=== PATIENT | female | born 1995 | race Caucasian/White ===

== ENCOUNTER 2021-04-29 15:18 | Emergency (ER) | payer BC, SELFPAY ==
--- NOTE | ~2021-04-29 | XR_ITS ---
EXAMINATION: XR wrist LT min 3V EXAM DATE: 04/29/2021 16:12 INDICATION: left radial wrist pain s/p fall 10 days ago. Initial encounter. TECHNIQUE: Left wrist frontal, frontal with ulnar deviation, oblique and lateral projections obtained and reviewed. There is no prior study for comparison. FINDINGS: Left wrist scapholunate joint space is maintained. There are no acute fractures or disloca tions identified. There is no subcutaneous gas. The soft tissue is unremarkable. There are no rad iopaque foreign bodies. IMPRESSION: No acute osseous findings. Reviewed, dictated and finalized at location B. IMPRESSION: No acute osseous findings.
[2021-04-29 15:32] VITALS: BP 118/71; PULSE 101; RESP 16; TEMP 36.3; O2SAT 99
--- NOTE | 2021-04-29 15:57 | ED.UPPEXIN ---
HPI - Extremity Injury (Upper) General Chief Complaint: Extremity Injury, Upper Stated Complaint: Left Wrist Pain Time Seen by Provider: 04/29/21 15:53 Source: patient, RN notes reviewed and old records reviewed Mode of arrival: ambulatory History of Present Illness HPI narrative: 26-year-old female who presents to [facility] with complaints of left wrist pain after falling about 10 days ago. Patient states that she fell on to her buttocks and she put her left hand out to break her fall and has had pain with any movement of her left wrist since that time. Patient is 27 weeks denies any spotting or cramping since fall.Patient rates her pain 4/10, has taken Tylenol an used ice to wrist without resolution, pain increases with extension and flexion of wrist, strong left radial pulse, no noted deformity. MD complaint: injury to: left and wrist Treatments prior to arrival: cold therapy and other (Tylenol) Related Data Allergies Allergy/AdvReac Type Severity Reaction Status Date / Time No Known Allergies Allergy Unverified 11/18/16 18:49 Review of Systems Review of Systems: CONSTITUTIONAL: Denies fever, chills, or sweats. EYES: Denies visual changes, redness, or discharge. ENT: Denies rhinorrhea, congestion, sore throat, or otalgia. CARDIOVASCULAR: Denies chest pain, palpitations, or edema. RESPIRATORY: Denies cough or dyspnea. GASTROINTESTINAL: Denies abdominal pain, nausea, vomiting, or diarrhea. GENITOURINARY: Denies dysuria or hematuria. SKIN: Denies rash or itching. MUSCULOSKELETAL: Denies back pain,positive for left wrist pain, or myalgia. NEUROLOGIC: Denies headache, numbness, or weakness. PSYCHIATRIC: Denies anxiety or depression. All systems reviewed & are unremarkable except as noted in HPI and below [facility] Past Medical History Medical History (Updated 04/30/21 @ 00:01 by Caleb Santana) Branchial cyst removed from jaw age 4 Sinusitis Family History Family History (Updated 05/02/21 @ 20:43 by Phoebe Henderson NP) Grandparent Hypertension Heart disease Kidney failure Father Diverticulitis Social History Social History (Updated 04/29/21 @ 16:43 by Phoebe Henderson NP) Smoking status: Never smoker Alcohol intake: never Substance use: never Living arrangements: with family Gender identity (if verbalized by the patient): Female Comments At time of signature, agree with nursing past medical, surgical, social and family history. There is no relevant family history pertinent to the presenting complaint Exam Narrative: GENERAL: Well-appearing, well-nourished, and in no acute distress. HEAD: Normocephalic, atraumatic. EYES: PERRLA and EOMI. ENT: Nares clear, no rhinorrhea or epistaxis. Mucous membranes moist.TM's normal with good light reflex, throat pink with no lesions or exudates, no tonsil enlargement. NECK: Supple.no lymphadenopathy CHEST: Clear to auscultation. No respiratory distress.SAO2 99% on room air HEART: Regular rate and rhythm. No murmur heard. Normal peripheral pulses. ABDOMEN: Soft, nontender, nondistended, normal active bowel sounds. EXTREMITIES: Normal range of motion. No edema. Painful ROM of left wrist with no obvious deformity noted. strong left radial pulse, no tingling or numbness to left hand or fingers,nail beds pedrito briskly. pain increases with movement at wrist no swelling present. SKIN: Warm, dry, no rash. NEURO: No focal deficits. Alert and oriented x3. Course Vital Signs Vital signs: Vital Signs Temperature 36.3 C L 04/29/21 15:32 Pulse Rate 101 H 04/29/21 15:32 Respiratory Rate 16 04/29/21 15:32 Blood Pressure 118/71 04/29/21 15:32 Pulse Oximetry 99 04/29/21 15:32 Temperature 36.3 C L 04/29/21 15:32 Pulse Rate 101 H 04/29/21 15:32 Respiratory Rate 16 04/29/21 15:32 Blood Pressure 118/71 04/29/21 15:32 Pulse Oximetry 99 04/29/21 15:32 MDM - Extremity Injury (Upper) Differential Diagnosis Differential diagn
== END 2021-04-29 17:09 | disposition home or self-care (01) ==
PROVIDERS: Emergency Provider Registered Nurse; PCP Internal Medicine
DX: S63.502A Unspecified sprain of left wrist, initial encounter (principal); S66.912A Strain of unspecified muscle, fascia and tendon at wrist and hand level, left hand, initial encounter; X58.XXXA Exposure to other specified factors, initial encounter
CPT/HCPCS: 73110; 99213; G0463

== ENCOUNTER 2021-07-25 06:38 | Inpatient (IN) | payer BC, SELFPAY ==
[2021-07-25] VITALS (122 sets, daily range): BP systolic 83–142; BP diastolic 48–113; PULSE 62–158; RESP 16–18; TEMP 36–37; O2SAT 90–100; BMI 30.2
[2021-07-25 07:31] LABS: Basophils Absolute Auto 0.1 K/mm3 (0.0-0.1); Basophils Percent Auto 0.4 % (0.2-1.2); Eosinophils Percent Auto 0.2 % (0-4.4); Hemoglobin 10.5 g/dL (12.0-15.0); Immature Granulocyte Absolute 0.14 K/mm3 (0.00-0.031); Immature Granulocyte Percent A 0.7 % (0-0.5); Lymphocytes Absolute Auto 2.52 K/mm3 (0.9-3.2); Lymphocytes Percent Auto 13.3 % (18.3-44.2); Mean Corpuscular HGB Conc 31.8 g/dl (32-36); Mean Corpuscular Hemoglobin 27.4 pg (26-34); Mean Corpuscular Volume 86.2 fl (80-100); Mean Platelet Volume 9.8 fl (7.4-10.4); Monocytes Absolute Auto 0.8 K/mm3 (0.1-0.6); Monocytes Percent Auto 4.4 % (2.6-8.5); Neutrophils Absolute Auto 15.4 K/mm3 (1.3-6.7); Platelet Count Result 344 k/mm3 (150-375); Red Blood Count 3.83 M/mm3 (4.2-5.4); Red Cell Distribution Width 13.3 % (11.5-14.5)
[2021-07-25] MEDS: AMPICILLIN 2 GM/NS 100 ML 2 GM/100 ML BAG IVPB (07:33)
[2021-07-25] MEDS: LACTATED RINGERS 1,000 ML 125 ML IV CONT ×3 (07:34→11:31)
--- NOTE | 2021-07-25 07:37 | LDADM ---
This patient, Christina Caballero, was admitted to Labor/Delivery/Recovery 107 on 07/25/21 at 06:38. Plans for labor, pain management and were discussed with patient. Patient/family oriented to hospital policies and general routines including ID bracelet, bed and alarms, visiting hours, pain management, procedures, bathroom and other care routines, personal items, smoking policy, room service/diet and guest tray routines, infant security routines, and visiting hours. Patient/Family are encouraged to report perceived risks to care and to ask questions if they do not understand what they are told or what they should do. See OBIX for further documentation.
--- NOTE | 2021-07-25 09:22 | WPDANESEPPF ---
Anes - Initial Pre Proc Eval Date/Time: 07/25/21 09:22 Surgeon: Emerson Young MD Pre Op Diagnosis: Labor Patient Data Age: 26 Gender: F Height: 1.63 m Weight: 80 kg Last Vital Signs Pulse 87 07/25/21 09:16 BP 135/88 07/25/21 09:16 Allergies Allergy/AdvReac Type Severity Reaction Status Date / Time No Known Allergies Allergy Unverified 11/18/16 18:49 Home Medications Medication Instructions Recorded Confirmed Type PNV cmb#95-ferrous fumarate-FA 1 tablet PO DAILY 07/10/21 07/10/21 History [] certolizumab pegol [Cimzia] See Rx Instructions .ROUTE .COMPLEX 07/10/21 07/10/21 History Laboratory Tests 07/25/21 07/25/21 07/25/21 07:25 07:25 07:25 WBC 19.0 K/mm3 H K/mm3 (4.5-10.0) RBC 3.83 M/mm3 L M/mm3 (4.2-5.4) Hgb 10.5 g/dL L g/dL (12.0-15.0) Hct 33.0 % L % (37.0-47.0) MCV 86.2 fl fl (80-100) MCH 27.4 pg pg (26-34) MCHC 31.8 g/dl L g/dl (32-36) RDW 13.3 % % (11.5-14.5) Plt Count 344 k/mm3 k/mm3 (150-375) MPV 9.8 fl fl (7.4-10.4) Immature Gran % (Auto) 0.7 % H % (0-0.5) Neut % (Auto) 81.0 % H % (45.5-73.1) Lymph % (Auto) 13.3 % L % (18.3-44.2) [place] % (Auto) 4.4 % % (2.6-8.5) Eos % (Auto) 0.2 % % (0-4.4) Baso % (Auto) 0.4 % % (0.2-1.2) Lymph # (Auto) 2.52 K/mm3 K/mm3 (0.9-3.2) [place] # (Auto) 0.8 K/mm3 H K/mm3 (0.1-0.6) Eos # (Auto) 0.0 K/mm3 K/mm3 (0-0.3) Baso # (Auto) 0.1 K/mm3 K/mm3 (0.0-0.1) Abs Immat Gran (auto) 0.14 K/mm3 H K/mm3 (0.00-0.031) Absolute Neuts (auto) 15.4 K/mm3 H K/mm3 (1.3-6.7) Absolute Nucleated RBC 0.0 K/mm3 K/mm3 (0.0-0.012) Nucleated RBC % 0.0 % % (0.0-0.2) RPR Pending Blood Type O Positive Antibody Screen Negative Patient hx anesthesia problems: none Family hx anesthesia problems: none Results Review: All pre-operative results and documents have been reviewed as part of the pre-operative evaluation. [facility] Past Medical History Medical History (Updated 04/30/21 @ 00:01 by Caleb Santana) Branchial cyst removed from jaw age 4 Sinusitis Family History Family History Grandparent Hypertension Heart disease Kidney failure Father Diverticulitis Social History Social History (Updated 04/29/21 @ 16:43 by Phoebe Henderson NP) Smoking status: Never smoker Alcohol intake: never Substance use: never Gender identity (if verbalized by the patient): Female Spiritual care concerns: No Anes - Eval Final PreProcedure Day of Procedure 07/25/21 09:22 Patient weight: overweight Heart: regular rate and rhythm Lungs: clear to auscultation and normal air movement Airway: Mallampati scale class II Neurological: alert and oriented Last oral intake: >/= 8 hours ASA classification: II Emergent: no Anesthetic plan: proceed Anesthesia type and monitoring: regional epidural Results Review: All pre-operative results and documents have been reviewed as part of the pre-operative evaluation. Informed Consent: The patient's anesthetic plan and its attendant risks and benefits were discussed with the patient/family/POA. Questions were solicited and answers provided to the satisfaction of the patient/family/POA.
--- NOTE | 2021-07-25 10:17 | WPDOBADMIT ---
Obstetrics - Admit Note Admission Note: record reviewed. Additions to the history and/or subsequent changes in the physical findings follow. 26 y/o G1 at 39 5/7 weeks here with contractions. Found to be in labor and has been admitted. GBS pos, receiving ampicillin. Now comfortable with epidural. AVSS NST reactive TOCO: contractions every 3-5 min ABD soft, nontender, gravid EXT nontender Cervix 6/100/0 A: IUP at term with labor. GBS pos. P: Ampicillin, anticipate .
[2021-07-25] MEDS: AMPICILLIN 1 GM/NS 50 ML 1 GM/50 ML BAG IVPB (11:27)
[2021-07-25] MEDS: OXYTOCIN 30 UNITS/NS 500 ML 30 UNITS/500 ML BAG IV CONT (13:30)
--- NOTE | 2021-07-25 13:49 | P.PCNOB_ITS ---
OB - Delivery Note Procedure Delivery date: 07/25/21 Procedure: Excision of vulvar skin tag Induction method: none Delivery monitor: external FHT and external uterine Route of delivery: Laceration Description: Perineal - 2nd Degree and Labial (bilateral) Delivery repair: vicryl (3-0) Specimen: Yes (cord blood, vulvar skin tag) Quantitative Blood Loss (ml): 85 Anesthesia type: Epidural Disposition: PACU Complications: None Narrative: 26 y/o G1 at 39 5/7 weeks gestation who presented to the hospital for induction of labor. Oxytocin was administered intravenously. Amniotomy was performed with return of clear fluid. She received an epidural for pain control. Her labor progressed and her cervix dilated completely. She pushed with good effort and delivered the 's head to the perineum, followed by the body. The nose and mouth were bulb suctioned. After a delay, the cord was clamped and cut. The was handed off the field. Cord blood was colle cted. The placenta delivered spontaneously and was grossly normal in appearance. The usual 3 vessel cord was noted. A second degree midline perineal laceration was sustained, as were bilateral labial lacerations. These were reapproximated using 3 0 Vicryl in the usual layered fashion. A 3 x 2 mm vulvar skin tag just to the right of the clitoral del angel was sharply excised and passed off to be sent to pathology. Wound edges reapproximated with a single figure of eight suture of 3 0 vicryl. Excellent hemostasis resulted as did excellent reapproximation of the normal anatomy. Needle and instrument counts were correct. The patient was taken to recovery room in stable condition. The went to the nursery in stable condition. I was present and scrubbed for the entire delivery. Baby Date of : 07/25/21 Time of : 13:50 Weeks of gestation at delivery: 39 gender: Female Weight (pounds): 7 Weight (ounces): 8 presentation: vertex position: Left Occiput Anterior Placenta delivery description: Spontaneous and Normal Configuration cord vessel description: 3 Vessels and Delayed Cord Clamping score one minute: 9 score five minutes: 9
--- NOTE | 2021-07-25 13:56 | PM.OBDSVD ---
DS: Admitting Diagnosis Discharge Date 07/27/21 Admitting Diagnosis IUP at 39 5/7 weeks Labor GBS colonization Vulvar skin tag DS: Discharge Diagnosis Discharge Diagnosis (1) (normal spontaneous vaginal delivery): Code(s): O80 - Encounter for full-term uncomplicated delivery Status: Acute (2) GBS (group B Streptococcus carrier), +RV culture, currently : Code(s): O99.820 - Streptococcus B carrier state complicating Status: Acute (3) Vulvar skin tag: Code(s): N90.89 - Other specified noninflammatory disorders of vulva and perineum Status: Acute OB - DS: Summary OB Procedures : None OB Procedures Intrapartum: Spontaneous Vag Delivery OB Procedures: : None DS: Data Data Completed and Pending Labs on day of discharge: Labs from last 24 hours 07/25/21 07/25/21 07/25/21 07:25 07:25 07:25 WBC 19.0 H RBC 3.83 L Hgb 10.5 L Hct 33.0 L MCV 86.2 MCH 27.4 MCHC 31.8 L RDW 13.3 Plt Count 344 MPV 9.8 Immature Gran % (Auto) 0.7 H Neut % (Auto) 81.0 H Lymph % (Auto) 13.3 L [place] % (Auto) 4.4 Eos % (Auto) 0.2 Baso % (Auto) 0.4 Lymph # (Auto) 2.52 [place] # (Auto) 0.8 H Eos # (Auto) 0.0 Baso # (Auto) 0.1 Abs Immat Gran (auto) 0.14 H Absolute Neuts (auto) 15.4 H Absolute Nucleated RBC 0.0 Nucleated RBC % 0.0 RPR Pending Blood Type O Positive Antibody Screen Negative Discharge Plan Discharge Attending physician on discharge: Diego Scott Consulting providers: Graham Salazar Discharging Clinician: Diego Scott Patient Disposition: Home, Self-Care Activity: pelvic rest Diet: regular Discharge Instructions: Education: Mom and Baby Guide Given to: Mother Follow-Up: Call your delivering provider's office for an appointment to be seen in: 6 Weeks Mom and baby should come to the [facility] for the follow-up appointment. Appointment Date/Time: Wednesday, July 28, 2021 at 8:00 a.m. What to expect at your follow-up visit: Blood Pressure Check Physical Assessment Call [phone] if you are unable to keep your appointment time. BREAST CARE: * Wear a snug supportive bra. * For engorgement discomfort: Breast Feeding: * Apply warm moist washcloths * Express milk as needed to relieve engorgement * Wear loose clothing * For sore nipples: * Identify correct latch-on * Apply warm moist washcloths before and after nursing * Air dry nipples after nursing * May apply Lansinoh cream to nipples EPISIOTOMY/PERINEAL CARE: * Until bleeding stops, use your hanna bottle after urinating * Change your pad frequently throughout the day * You may take sitz baths several times a day (fill your bathtub with warm water and soak for 20 minutes.) Do NOT bathe in the water * No tub baths until seen by your physician - You may shower ACTIVITY: * Rest as much as possible. * Do not exercise or lift anything heavier than your baby (such as laundry or other children.) * Avoid stairs or driving as much as possible. * Do not put anything into the vagina. No douching, tampons, or sexual activity until seen by physician. NOTIFY PHYSICIAN IF YOU HAVE ANY QUESTIONS OR IF ANY OF THE FOLLOWING SYMPTOMS OCCUR: * If your perineum becomes red, swollen, or more painful than what you have experienced in the hospital. * If your vaginal bleeding becomes foul smelling. * If your vaginal bleeding becomes more heavy than a period or if your bleeding changes from pink to bright red. However, you may pass an occasional walnut-sized clot once or twice for the first week . * If you experience a sharp, shooting pain in you calves. * If you discover a hard, reddened area on your breast or if you experience flu-like symptoms. DIET: * Eat regular, well-balance
[2021-07-25] MEDS: OXYTOCIN 30 UNITS/NS 500 ML 30 UNITS/500 ML BAG 125 UNITS IV CONT (14:04)
--- NOTE | 2021-07-25 14:05 | PC.NURSE ---
Mother called out for assist with feeding. is able to freely thrust tongue past gum ridge and flange both lips. Reviewed feeding cues, frequencies, duration of feedings, feeding elimination flow sheet, and signs of adequate intake. Demonstrated stimulation techniques to wake infant for feeding. Assisted with infant to breast. Reviewed positioning/alignment in cross cradle, holding breast in ?U? hold and guided asymmetrical latch on. Reviewed rational for each. Several attempts before infant was able to latch correctly, due to infant keeping tongue and sucking her tongue. able to latch correctly after several few attempts. nursed eagerly with steady draws and occasional swallowing noted, some pausing noted. Reviewed signs of a correct latch, effective nursing and suck swallow ratio. Suggested mother stimulate while feeding to increase stimulation for milk supply, for increased intake and to assist with maintaining deep latch. would slip to shallow latch causing tenderness and releasing latch. Demonstrated how to adjust latch more deeply while feeding as needed. Mother reports she can feel the difference in latch with no tenderness. Nipple care reviewed of lanolin after feedings, warm compresses as needed,. Instructed mother to call out for RN assistance if she is unable to latch infant for feeding or she has discomfort with nursing. Instructed feeding should be initiated three hours from start of last feeding or if feeding cues are noted before. Mother voiced understanding of information shared.
[2021-07-25] MEDS: miSOPROStol 200 MCG TABLET 1000 MCG (15:58)
--- NOTE | 2021-07-25 17:35 | OBPPTRN ---
1700-Patient transferred to post room #282 via wheelchair. Support person present. Oriented to unit, room, information board, rooming in, admission packet and security measures. Patient verbalizes understanding.
[2021-07-26 06:05] LABS: Hematocrit 27.2 % (37.0-47.0); Hemoglobin 8.6 g/dL (12.0-15.0)
[2021-07-26 07:45] VITALS: BP 128/84; PULSE 88; RESP 16; TEMP 36.7; O2SAT 97
[2021-07-26] MEDS: MULTIVIT/MIN/PREN/FOL AC/IRON TABLET 1 TAB PO (07:57)
[2021-07-26] MEDS: POLYSACCHARIDE IRON COMPLEX 150 MG CAPSULE PO ×2 (07:57→16:09)
[2021-07-26] MEDS: DOCUSATE SODIUM 100 MG CAPSULE PO ×2 (07:57→16:09)
--- NOTE | 2021-07-26 08:40 | WPDANLDPN2 ---
Anes-Prog Note L&D Date/Time: 07/26/21 08:40 Comfortable throughout: labor and delivery Neuraxial method: epidural Epidural/Spinal procedure site: clean & non-tender Neuro status: Neuro function grossly intact. Cardiovascular status: normal Respiratory status: normal Airway patency: baseline Mental status: baseline Post-Op hydration status: normal Vital Signs: Last Vital Signs Temp 98.1 F 07/26/21 07:45 Pulse 88 07/26/21 07:45 Resp 16 07/26/21 07:45 BP 128/84 07/26/21 07:45 Pulse Ox 97 07/26/21 07:45 Pain score (VAS): 0 I/O: Intake & Output 07/25/21 07/26/21 07/26/21 23:59 07:59 15:59 Intake Total 500 Balance 500 Post-procedural complaints: none Patient feedback: Patient satisfied with anesthetic care.
--- NOTE | 2021-07-26 10:05 | PM.OBPNVD ---
OB - PN: Subj Subjective Date/time seen: 07/26/21 10:05 Narrative: Pain OK. OB - PN: Obj Data Labs CBC & Chem 7: 07/26/21 03:31 Labs: Laboratory Results - last 24 hr 07/26/21 03:31 Hgb 8.6 L Hct 27.2 L OB - PN A/P Plan Comments: A: PPD#1, doing well. P: Routine care. Exam Psych: Other: AVSS ABD soft, nontender, fundus firm EXT nontender
[2021-07-26 12:00] VITALS: BP 122/71; PULSE 82; RESP 18; TEMP 36.4; O2SAT 100
[2021-07-26 19:05] VITALS: BP 118/75; PULSE 81; RESP 18; TEMP 36.7
--- NOTE | 2021-07-26 19:10 | PC.NURSE ---
Patient viewed the discharge video Mother & Baby Care, The First Two Weeks online. Patient was given the opportunity and encouraged to ask questions. Patient verbalized understanding of information shared and has been given the mother/baby guide for home reference.
[2021-07-27 08:00] VITALS: BP 114/80; PULSE 71; RESP 16; TEMP 36.4; O2SAT 99
[2021-07-27] MEDS: MULTIVIT/MIN/PREN/FOL AC/IRON TABLET 1 TAB PO (08:30)
[2021-07-27] MEDS: POLYSACCHARIDE IRON COMPLEX 150 MG CAPSULE PO (08:30)
[2021-07-27] MEDS: DOCUSATE SODIUM 100 MG CAPSULE PO (08:30)
[2021-07-28 08:01] VITALS: BP 135/85; PULSE 80; RESP 20; TEMP 36.6; O2SAT 100
[2021-07-28 14:38] LABS: Rapid Plasma Reagin Non-Reactive (NonReactive)
== END 2021-07-27 10:11 | disposition home or self-care (01) | DRG 807 ==
LOC: ANHLDR 13:58 → ANHOB2 07-27 09:28 → ANHLDR 07-28 09:52 → ANHOB2 07-28 09:52
PROVIDERS: Admitting Provider Obstetrics & Gynecology; PCP Internal Medicine; Visit Provider Obstetrics & Gynecology
DX: O99.824 Streptococcus B carrier state complicating childbirth (principal); Z37.0 Single live birth; O70.1 Second degree perineal laceration during delivery; N90.89 Other specified noninflammatory disorders of vulva and perineum; Z3A.39 39 weeks gestation of pregnancy
CPT/HCPCS: 36415; 85014; 85018; 85025; 86592; 86850; 86900; 86901; 88304; 88305; A9270; J0290; J2590; J2795; J7120